=== PATIENT | male | born 1955 | race Two or more races ===

== ENCOUNTER 2016-10-01 19:16 | Emergency (ER) | payer SELFPAY ==
[~2016-10-01] VITALS: Ht 172.7 cm; Wt 72.6 kg
[2016-10-01 19:58] LABS: CONDITION Y; Hematocrit 44.4 % (41.0-53.0); Hemoglobin 15.4 g/dL (13.5-17.5); Mean Corpuscular Hemoglobin 33.1 pg (28.0-32.0); Mean Corpuscular Hgb Conc. 34.7 g/dL (32.0-36.0); Mean Corpuscular Volume 95.4 fL (80.0-100.0); Mean Platelet Volume 7.8 fL (7.4-10.4); Platelet Count (auto) 268 10^3/uL (140-450); Red Cell Distribution Width 13.3 % (11.6-16.0); White Blood Cell 9.3 10^3/uL (4.4-10.8)
[2016-10-01 20:15] LABS: Albumin 3.6 g/dL (3.4-5.0); Anion Gap 10 (5-15); Blood Urea Nitrogen 17 mg/dL (7-18); Calcium 8.3 mg/dL (8.5-10.1); Carbon Dioxide 25 mmol/L (21-32); Chloride 110 mmol/L (98-107); Glucose 120 mg/dL (74-106); Magnesium 2.2 mg/dL (1.6-2.6); Potassium 3.3 mmol/L (3.5-5.1); Sodium 145 mmol/L (136-145)
[2016-10-01 20:16] LABS: Aspartate Aminotransferase 31 U/L (15-37); BUN/Creatinine Ratio 19.5; GFR African American 115 mL/min; GFR Non-African American 95 mL/min
[2016-10-01 20:22] LABS: Alkaline Phosphatase 93 U/L (45-117); Bilirubin, Total 0.4 mg/dL (0.2-1.0); Total Protein 6.9 g/dL (6.4-8.2)
[2016-10-01 20:42] LABS: Metamyelocytes % 0; Myelocytes % 0; Promyelocytes % 0; Reactive Lymphocytes 0
[2016-10-01 20:45] LABS: INR 0.91 (0.9-1.15); Partial Thromboplastin Time 21.2 sec (22.64-33.71); Prothrombin Time 9.9 sec (9.37-12.3)
[2016-10-01 21:17] LABS: Platelet Estimate Adequate
[2016-10-01 23:33] LABS: Urine Mucus FEW (None Seen); Urine RBC 3 /hpf (0 - 3); Urine Squamous Epithelial Cell FEW /hpf (<5)
[2016-10-02 00:01] LABS: Urine Bilirubin Negative (Negative); Urine Color Yellow (Yellow); Urine Glucose Normal (Normal); Urine Urobilinogen Normal (Negative)
[2016-10-02 00:02] LABS: Urine Blood Trace /uL (Negative); Urine Ketone Negative (Negative); Urine Nitrite Negative (Negative)
[2016-10-02 01:04] VITALS: BP 104/71
== END 2016-10-01 23:33 | disposition home or self-care (01) ==
LOC: ER 19:29
DX: T40.7X1A Poisoning by cannabis (derivatives), accidental (unintentional), initial encounter (principal); R41.82 Altered mental status, unspecified; Y92.89 Other specified places as the place of occurrence of the external cause
CPT/HCPCS: 36415; 70450; 71010; 80053; 80307; 81001; 82962; 83735; 84484; 85007; 85027; 85610; 85730; 93005